=== PATIENT | male | born 1955 | race Caucasian/White ===

== ENCOUNTER → 2018-02-01 10:38 | Outpatient (CLI) | payer BC ==
[2009-12-09 06:28] VITALS: BMI 36.0
== END | disposition home or self-care (01) ==
LOC: D.MRI 10:38
DX: M54.5 Low back pain (principal)

== ENCOUNTER 2018-11-16 05:55 | Day surgery (SDC) | payer BC ==
[2018-11-15 11:23] LABS: BASOPHILS 0 % (0-2); EOSINOPHILS 1.3 % (0-7); HEMATOCRIT 44.4 % (42.0-54.0); HEMOGLOBIN 15.2 g/dL (13.5-17.5); IMMATURE GRANULOCYTES 0.2 % (0-5); LYMPHOCYTES 24.1 % (15-50); MCH 31.6 pg (26.0-34.0); MCHC 34.2 g/dL (31.0-37.0); MCV 92.3 fL (80.0-100.0); MEAN PLATELET VOLUME 11.8 fL (7.4-10.4); MONOCYTES 9.7 % (2-11); NEUTROPHILS 64.7 % (40-80); PLATELET COUNT 154 10x3/uL (130-400); RBC 4.81 10x6/uL (4.20-6.10); RDW 14.2 % (11.5-14.5); WBC 5.6 10x3/uL (4.8-10.8)
[2018-11-15 11:32] LABS: ANION GAP 10.2 mmol/L (8-16); CALCIUM 9.6 mg/dL (8.5-10.1); CARBON DIOXIDE 30.3 mmol/L (21.0-32.0); CREATININE - SERUM 1.3 mg/dL (0.6-1.3); POTASSIUM - SERUM 4.5 mmol/L (3.5-5.1)
[2018-11-15 11:36] LABS: INR 0.93 (0.85-1.17)
[~2018-11-16] VITALS: Ht 182.9 cm; Wt 109.3 kg
[~2018-11-16 05:55] MED LIST: GLUCOPHAGE XR750 MG PO; HYDROCHLOROTHIA25 MG PO; LEVOXYL150 MCG PO; PRAVASTATIN SOD10 MG PO; PROSCAR5 MG PO; ZYLOPRIM300 MG PO
[2018-11-16 06:36] VITALS: BP 147/95; Ht 182.9 cm; Wt 109.3 kg
--- NOTE | 2018-11-16 10:30 | NUR ---
REC'D FROM [facility]. FAMILY AT BEDSIDE. DRESSING CDI TO LLE. ICE CHIPS. PT REPORTS NAUSEA AND IS NOT READY FOR A TRAY.
--- NOTE | 2018-11-16 11:00 | NUR ---
ORANGE SHERBERT AND ORANGE JUICE BROUGHT TO PT. RELATES IS FEELING BETTER.
--- NOTE | 2018-11-16 11:20 | NUR ---
FL TRAY SERVED. ICE PACK APPLIED TO LLE.
--- NOTE | 2018-11-16 11:40 | NUR ---
TOLERATED FL DIET. NO URGE TO VOID. IV FLUIDS INCREASED.
--- NOTE | 2018-11-16 12:45 | NUR ---
AMBULATED TO BATHROOM. VOIDED WITHOUT DIFFICULTY.
--- NOTE | 2018-11-16 12:55 | NUR ---
IV DC'D WITH CATHETER INTACT. WRITTEN AND VERBAL DC INST. GIVEN TO PT ALONG WITH RS. VERBALIZED UNDERSTANDING.
--- NOTE | 2018-11-16 12:58 | NUR ---
DC'D HOME WITH FAMILY VIA PRIVATE VEHICLE. STABLE AT TIME OF DC.
--- NOTE | 2018-11-16 21:55 | OP ---
PATIENT NAME: TITA SINGH MEDICAL RECORD: [id number] :55 LOCATION:[facility] ADMISSION DATE: SURGEON: AILIN ROBIN MD DATE OF OPERATION: 11/16/2018 PREOPERATIVE DIAGNOSES: Painful varicose veins, left leg and superficial thrombophlebitis, chronic, resolving left leg. OPERATION PERFORMED: Ambulatory stab phlebectomy with excision of 25 varicosities. SURGEON: Ailin Robin MD ANESTHESIA: General with LMA by SOFTWARE ENGINEERING PROJECT MANAGER and also tumescent anesthetic with Marcaine 0.5% 50 cc in 1000 cc of normal saline. Referral from Tasneem Glass APRN or nurse practitioner here in [place]. PREOPERATIVE NOTE: Mr. Singh is a 63-year-old male with extremely painful, tender protruding varicose veins on his left leg, predominantly on the anterior and upper medial aspect of the leg and knee. He has had a very painful, tender superficial thrombophlebitis involving one of these protruding veins. He has been treated now with a local heat, compression hose, anticoagulants, etc., for a couple of months and continues to have a very tender, painful thrombosed vein palpable. I did not think that he would be able to tolerate this procedure done as we otherwise usually would do in the office under local anesthesia, so he is brought to the hospital today as an outpatient and to the operating room to have a phlebectomy done under general anesthetic. Under general anesthesia in supine position, the patient was prepped and draped in a sterile manner. The sites of the protruding varicose veins had been marked yesterday in my office. I made predominantly longitudinal stab incisions with an 11-blade scalpel at the level of the knee, transversely oriented incisions and there were 4 larger wounds, which were necessary for removal of clotted veins and very large varicosities and this was all done bluntly. First the area was infiltrated with a tumescent solution of Marcaine with epinephrine and saline. The veins removed were discarded and not sent for histopathology. The skin incisions were closed with interrupted simple 4-0 Prolene sutures and then dressed with Maxorb AG and Tegaderm with Cavilon skin prep. The patient was placed in his knee high 20-30 open toe compression stocking and then additional 4 x 4 padding was applied over the areas of most aggressive phlebectomies and over the medial lower thigh and the area wrapped with additional Coban compression dressing. The patient was then awakened and taken to the recovery room in stable condition. PLAN: The patient will go home today from the outpatient department and continue his home medications. He is given a prescription for 20 [place] 5/325. He can take 1 or 2 p.o. q.4 hours p.r.n. pain. He is also given a prescription for Bactroban ointment, which he will begin applying to each incision site once a day beginning on Monday after his first shower. His instructions are today to go home and rest with his left leg, if not both legs elevated higher than the level of his heart, although he may be up to the bathroom and up for meals, etc. He is to leave the stocking and a Coban compression dressing intact if possible. He is to use ice on the medial leg and OPERATIVE REPORT [id number] COUNTS,TITA W knee off and on to reduce pain and swelling and bruising, etc. Tomorrow morning, he may remove the Coban and leave the stocking in place and then on Monday morning, he can remove the stocking and also removed the plastic Tegaderm dressings and shower and wash the incision sites with soap and water. After the shower, he is to pat the incision sites dry and apply small dabs of Bactroban ointment to each and then redone his stocking. I do not think there will be any need for any additional wrapping after that. He should wear the stocking 12/12 except for showers until he comes back to see me in my office. He will have to come back Monday, which is a little longer than usual, but that is because of the holiday weekend and vacations already scheduled for next week. TRANSINT:[id number] Voice Confirmation ID: [id number] DOCUMENT ID: [id number] AILIN ROBIN MD at [id number] CC: TASNEEM GLASS [id number] DICTATION DATE: 11/16/18 1013 KNITTING MACHINE OPERATOR: 11/16/18 125[address] [facility] 11/16/18 [address] [place] [address]
== END 2018-11-16 12:58 | disposition home or self-care (01) ==
LOC: D.PAN 05:55 → D.OPS 11:30 → D.PAN 11:30
PROVIDERS: ATTEND Surgery
DX: I83.812 Varicose veins of left lower extremity with pain (principal); I80.02 Phlebitis and thrombophlebitis of superficial vessels of left lower extremity; Z01.812 Encounter for preprocedural laboratory examination